=== PATIENT | female | born 1955 | race Caucasian/White ===

== ENCOUNTER → 2021-11-25 | Outpatient (CLI) | payer BC ==
--- NOTE | 2021-11-26 17:35 | MM ---
Reason for Exam: Screening (asymptomatic). Last mammogram was performed 6 year(s) and 4 month(s) ago. Patient History: Menarche at age 12. First Full-Term at age 36. Late child-bearing (after 30). Postmenopausal. Mother had breast cancer, age 80. Risk Values: Payton 5 year model risk: 3.1%. NCI Lifetime model risk: 10.0%. Film Views: Bilateral CC views were taken. Bilateral MLO views were taken. Prior Study Comparison: 07/19/2014 Bilateral Screening Mammogram, [facility]. 07/26/2014 Right Diagnostic Mammogram, [facility]. 07/11/2015 Bilateral Diagnostic Mammogram, [facility]. Tissue Density: There are scattered fibroglandular densities. Findings: Analyzed By CAD. There is no suspicious group of microcalcifications or new suspicious mass in either breast. Chronic nodularity is present bilaterally likely lymph nodes. No significant interval changes are evident. Overall Assessment: Benign, BI-RAD 2 Management: Screening Mammogram of both breasts in 1 year. A clinical breast exam by your physician is recommended on an annual basis and results should be correlated with mammographic findings. Electronically signed and approved by: Rufino Barajas D.O. Radiologis
== END | disposition home or self-care (01) ==
LOC: RADMAMWWP 08:30
PROVIDERS: ATTEND Family Medicine
DX: Z12.31 Encounter for screening mammogram for malignant neoplasm of breast (principal)
CPT/HCPCS: 77063; 77067

== ENCOUNTER 2022-08-22 22:57 | Emergency (ER) | payer BC, MEDICARE ==
[2022-08-22 23:06] VITALS: BP 149/89; PULSE 68; RESP 16; TEMP 98
[2022-08-23] MEDS ORDERED: DIPH,PERTUS(ACELL)TETVAC-LF 0.5 ML VIAL IM ONE (01:01)
[2022-08-23] MEDS: LIDOCAINE 1% INJ 10MG/ML (30 ML VIAL-PF) SQ ONE ×2 (01:04→01:10)
[2022-08-23] MEDS ORDERED: TOPICAL SKIN ADHESIVE 1 EACH AMP TOPICAL ONE (01:09)
--- NOTE | 2022-08-23 01:35 | ED ---
Wound/Laceration HPI - General Chief Complaint: Wound/Laceration Stated Complaint: Fall Time Seen by Provider: 08/23/22 01:00 Source: patient, RN notes reviewed, old records reviewed Mode of arrival: ambulatory Limitations: no limitations - History of Present Illness Initial Comments: This is a pleasant 67-year-old female that presents to the emergency room with laceration to her chin after trip and fall today. She states that she did not lose consciousness. She does not take any blood thinners. There is a 2 cm laceration under her chin with no active bleeding. Unsure if her tetanus is up-to-date. She states she also hurt her right foot and noticed a small bruise but has been able to ambulate minimal pain to palpation. Denies any medical hi story -: hour(s) Location: face (chin) Place: outdoors Patient Tetanus UTD: No Context: fall Associated Symptoms: none - Related Data Allergies Allergy/AdvReac Type Severity Reaction Status Date / Time No Known Allergies Allergy Verified 08/22/22 23:02 Review of Systems ROS Statement: Those systems with pertinent positive or pertinent negative responses have been documented in the HPI. ROS Other: All systems not noted in ROS Statement are negative. Past Medical History Past Medical History: No Reported History History of Any Multi-Drug Resistant Organisms: None Reported Past Surgical History: No Surgical Hx Reported Past Psychological History: No Psychological Hx Reported Smoking Status: Never smoker Past Alcohol Use History: Occasional Past Drug Use History: None Reported General Exam Limitations: no limitations General appearance: alert, in no apparent distress Head exam: Present: atraumatic, normocephalic Expanded Head exam: Present: laceration. Absent: contusion, hematoma, raccoon eyes, souza's sign, general tenderness, tenderness of temporal artery Eye exam: Present: normal appearance. Absent: scleral icterus, conjunctival injection, periorbital swelling ENT exam: Present: mucous membranes moist Expanded Mouth exam: Present: tongue normal, tongue elevation. Absent: drooling, trismus, muffled voice Neck exam: Present: full ROM. Absent: tenderness, meningismus, lymphadenopathy Respiratory exam: Absent: respiratory distress, accessory muscle use Cardiovascular Exam: Present: regular rate Right Foot/Toe exam: Present: full ROM, tenderness, swelling, ecchymosis (fifth metatarsal distal) Neurovascular tendon exam: Present: no vascular compromise. Absent: abnormal cap refill, motor deficit, sensory deficit, tendon deficit, extremity cold to touch, pallor, foot drop Neurological exam: Present: alert, oriented X3 Psychiatric exam: Present: normal affect, normal mood Skin exam: Present: warm, dry, normal color, other (chin laceration approx 1.5cm) Course Vital Signs 08/22/22 23:02 Temperature 98 F Pulse Rate 68 Respiratory 16 Rate Blood Pressure 149/89 O2 Sat by Pulse 99 Oximetry Medical Decision Making - Medical Decision Making Wound was irrigated with saline copiously. Patient requesting surgical glue instead of stitches which was applied. Tetanus shot was given XR interpreted by me shows a comminuted fracture of the fifth metatarsal. Radiologist impression acute distal fifth metatarsal fracture. Calcaneal spurring. I went in to place a splint on the patient's foot and the nurse advised me that the patient eloped ambulatory out the department with friend. Case discussed with Dr. Osorio Was pt. sent in by a medical professional or institution (, PA, FURNITURE INSPECTOR, urgent care, hospital, or correction...) When possible be specific @ -no Did you speak to anyone other than the patient for history (EMS, parent, family, police, friend...)? What history was obtained from this source @ -no Did you review nursing and triage notes (agree or disagree)? Why? @ -yes i agree Were old charts reviewed (outside hosp., previous admission, EMS record, old EKG, old radiological studies, urgent care reports/EKG's, correction records)? Report findings @ -no Differential Diagnosis (chest pain, altered mental status, abdominal pain women, abdominal pain men, vaginal bleeding, weakness, fever, dyspnea, syncope, headache, dizziness, GI bleed, back pain, seizure, CVA, palpatations, mental health, musculoskeletal)? @ -laceration, foot sprain, foot contusion, fracture EKG interpreted by me (3pts min.). @ -n/a X-rays interpreted by me (1pt min.). @ -yes as above CT interpreted by me (1pt min.). @ -[None done] U/S interpreted by me (1pt. min.). @ -[None done] What testing was considered but not performed or refused? (CT, X-rays, U/S, labs)? Why? @ -none What meds were considered but not given or refused? Why? @ -none Did you discuss the management of the patient with other professionals (professionals i.e. , PA, FURNITURE INSPECTOR, lab, RT, psych nurse, psychosocial rehabilitation counselor, field collector, teacher, banking officer, patient case coordinator)? Give summary @ -no Was smoking cessation discussed for >3mins.? @ -n/a Was critical care preformed (if so, how long)? @ -no Were there social determinants of health that impacted care today? How? (Homelessness, low income, unemployed, alcoholism, drug addiction, transportation, low edu. Level, literacy, decrease access to med. care, nursing home, rehab)? @ -no Was there de-escalation of care discussed even if they declined (Discuss DNR or withdrawal of care, Hospice)? DNR status @ -no What co-morbidities impacted this encounter? (DM, HTN, Smoking, COPD, CAD, Cancer, CVA, ARF, Chemo, Hep., AIDS, mental health diagnosis, sleep apnea, morbid obesity)? @ -no Was patient admitted / discharged? Hospital course, mention meds given and route, prescriptions, significant lab abnormalities, going to OR and other pertinent info. @ -eloped Undiagnosed new problem with uncertain prognosis? @ -[No] Drug Therapy requiring intensive monitoring for toxicity (Heparin, Nitro, Insulin, Cardizem)? @ -[No] Were any procedures done? @ -no, patient eloped before splint could be applied Diagnosis/symptom? @ -Facial laceration, right fifth metatarsal fracture Acute, or Chronic, or Acute on Chronic? @ -acute Uncomplicated (without systemic symptoms) or Complicated (systemic symptoms)? @ -[default] Side effects of treatment? @ -[No] Exacerbation, Progression, or Severe Exacerbation? @ -[No] Poses a threat to life or bodily function? How? (Chest pain, [place], [place], pneumonia, PE, COPD, DKA, ARF, appy, cholecystitis, CVA, Diverticulitis, Homicidal, Suicidal, threat to staff... and all critical care pts) @ -[no Disposition Clinical Impression: Laceration, Fracture of fifth metatarsal bone of right foot Disposition: HOME SELF-CARE Condition: Good Instructions (If sedation given, give patient instructions): Laceration (ED), Foot Fracture in Adults (ED), Skin Adhesive Care (ED) Additional Instructions: Do not put any ointment or lotion on the surgical glue. The glue will flake off on its own in 10 days. Watch for signs of infection including redness, pain or fevers. Return if any complications. Tylenol or Motrin as needed for any pain or discomfort. Is patient prescribed a controlled substance at d/c from ED?: No Referrals: David Diaz DO [Primary Care Provider] - 1-2 days Time of Disposition: 02:00
--- NOTE | 2022-08-23 01:46 | XR ---
EXAMINATION TYPE: XR foot complete RT DATE OF EXAM: 08/23/2022 COMPARISON: NONE HISTORY: Pain TECHNIQUE: 3 views FINDINGS: There is acute oblique and comminuted fracture distal shaft of the fifth metatarsal. No sig nificant displacement. No dislocation. There is plantar calcaneal spurring. IMPRESSION: Acute distal fifth metatarsal fracture. Calcaneal spurring.
== END 2022-08-23 01:55 | disposition home or self-care (01) ==
LOC: EC 22:57
DX: S92.354A Nondisplaced fracture of fifth metatarsal bone, right foot, initial encounter for closed fracture (principal); S01.81XA Laceration without foreign body of other part of head, initial encounter; W01.0XXA Fall on same level from slipping, tripping and stumbling without subsequent striking against object, initial encounter; Y92.009 Unspecified place in unspecified non-institutional (private) residence as the place of occurrence of the external cause
CPT/HCPCS: 99283

== ENCOUNTER → 2023-10-26 | Outpatient (CLI) | payer MEDICARE ==
--- NOTE | 2023-10-28 12:53 | MM ---
Reason for Exam: Screening (asymptomatic). Last mammogram was performed 1 year(s) and 11 month(s) ago. Patient History: Menarche at age 12. First Full-Term at age 36. Late child-bearing (after 30). Postmenopausal. Patient has history of breast feeding. Mother had breast cancer, age 80. Risk Values: Payton 5 year model risk: 3.2%. NCI Lifetime model risk: 9.1%. Prior Study Comparison: 07/13/2013 Bilateral Screening Mammogram, [facility]. 07/19/2014 Bilateral Screening Mammogram, [facility]. 07/26/2014 Right Diagnostic Mammogram, [facility]. 07/11/2015 Bilateral Diagnostic Mammogram, [facility]. 11/25/2021 Bilateral MG 3D screening mammo w/cad, [facility]. Tissue Density: The breasts are heterogeneously dense, which may obscure small masses. Findings: Analyzed By CAD. There is no suspicious group of microcalcifications or new suspicious mass in either breast. Overall Assessment: Benign, BI-RAD 2 Management: Screening Mammogram of both breasts in 1 year. . Patient should continue monthly self-breast exams. A clinical breast exam by your physician is recommended on an annual basis. This exam should not preclude additional follow-up of suspicious palpable abnormalities. Note on Payton scores and lifetime risk: 1. A Payton score greater than 3% is considered moderate risk. If this is the case, consider specialist referral to assess eligibility for a risk reducing agent. 2. If overall lifetime risk for the development of breast cancer is 20% or higher, the patient may qualify for future screening with alternating mammogram and breast MRI. Electronically signed and approved by: Saúl Armendariz M.D. Radiologis
== END | disposition home or self-care (01) ==
LOC: RADMAMWWP 10:50
PROVIDERS: ATTEND Family Medicine
DX: Z12.31 Encounter for screening mammogram for malignant neoplasm of breast (principal); Z80.3 Family history of malignant neoplasm of breast; Z78.0 Asymptomatic menopausal state
CPT/HCPCS: 77063; 77067